=== PATIENT | male | born 1950 | race Caucasian/White ===

== ENCOUNTER 2024-08-22 08:19 | Observation (INO) ==
--- NOTE | 2024-08-11 09:21 | Anesthesiology Consultation ---
Date of Service August 11, 2024 Assessment & Plan (1) Encounter for pre-operative examination: Infectious disease screening: Per assessment on 08/10/24- No known recent infectious disease contacts. Cough onset ~08/03/24 which is improving as of PAT RN phone interview 08/10/24. DOS not until 08/22/24 which is greater than 10 days after onset of symptoms. Patient advised to contact PAT/surgeon if symptoms not at baseline prior to surgery. Nothing further needed at this time. Chart Review Chart Review: Acceptable Risk for Surgery and Patient NOT seen in Pre Admission Testing History Surgery Operation Date: 08/22/24 08:20 Proposed Procedures p TURP (Transurethral Resection of the Prostate) - Hugh Sheehan DO s Transrectal Ultrasound with Prostate Needle Biopsy - Hugh Sheehan DO Height/Weight Height: 6 ft Weight: 88.451 kg Allergies Allergy/AdvReac Type Severity Reaction Status Date / Time No Known Allergies Allergy Verified 08/10/24 11:07 Medications Home Medications Medication Instructions Recorded Confirmed Last Taken cholecalciferol (vitamin D3) 50 50 mcg PO DAILY 06/20/24 08/10/24 Unknown mcg (2,000 unit) capsule multivitamin 1 tab PO DAILY 06/20/24 08/10/24 Unknown psyllium husk 3.4 gram/5.4 gram 1 tbsp PO DAILY 06/20/24 08/10/24 Unknown oral powder (Metamucil) tamsulosin 0.4 mg capsule 0.4 mg PO QDL 06/20/24 08/10/24 Unknown oxybutynin chloride 5 mg tablet 5 mg PO DAILY PRN bladder spasms 07/15/24 08/10/24 Unknown #30 tabs Past Medical History Medical History BPH (benign prostatic hyperplasia) Elevated PSA monitoring Butler catheter in place History of COVID-2019 Past Surgical History Surgical History History of colonoscopy History of tooth extraction Social History Smoking Status: Current some day smoker Smoking cigarettes per day: 1 PPD Do You Dip or Chew Tobacco: No Hx Alcohol Use: No Hx Substance Use: No substance use type: does not use Testing Laboratory Results 08/09/24 WBC 9.82 H/H 15.6/472 PLATELETS 245 SODIUM 137 POTASSIUM 4.2 CHLORIDE 107 CO2 25.3 BUN 13.1 CREATININE 25.3 GLUCOSE 107 Electrocardiogram Date: 08/09/24 SR at 75bpm. iRBBB. Chest X-Ray Date: 08/09/24 Findings: + NAD
[~2024-08-22 08:19] MED LIST: ACETAMINOPHEN 1000 MG/100 ML IV IV ONE
--- NOTE | 2024-08-22 08:35 | History & Physical Bridge Note ---
Date of Service August 22, 2024 History & Physical Bridge Note I have examined the patient, reviewed the History & Physical and in the interval since the performance of the History & Physical I have noted the following changes of clinical significance: no changes noted
[2024-08-22] MEDS: LR 15ML/HR IV SCH (08:54)
[2024-08-22] MEDS ORDERED: MIDAZOLAM HCL 1 MG/ML 2ML VIAL ONE (09:34)
[2024-08-22] MEDS ORDERED: fentaNYL citrate PF 100 MCG/2 ML VIAL ONE ×2 (09:35→10:46)
[2024-08-22] MEDS ORDERED: PROPOFOL IV EMULSION 10 MG/ML 20 ML VIAL IV ONE (09:36)
[2024-08-22] MEDS ORDERED: LIDOCAINE 2% 2 ML VIAL/AMP(20MG/ML) INFIL ONE (09:36)
[2024-08-22] MEDS ORDERED: MoRPHine SULFATE 2 MG/ML CARP IV PRN (10:06)
[2024-08-22] MEDS ORDERED: oxyBUTYnin chloride 5 MG TAB PO PRN ×3 (10:06→10:32)
[2024-08-22] MEDS ORDERED: oxyCODONE/ACETAMINOPHEN 5mg/325mg TAB PO PRN (10:06)
[2024-08-22] MEDS: ceFAZolin 2000MG 2,000 MG/15 ML SYR IV SCH (10:23)
[2024-08-22] MEDS ORDERED: ePHEDrine sulfate 50 MG/ML AMP ONE (10:31)
[2024-08-22] MEDS ORDERED: KETOROLAC 30 MG/ML VIAL ONE (10:43)
[2024-08-22] MEDS ORDERED: ONDANSETRON INJ 2 MG/ML 2 ML VIAL ONE (10:43)
[2024-08-22] MEDS ORDERED: DEXAMETHASONE SOD INJ 4 MG/ML VIAL ONE (10:43)
[2024-08-22] MEDS ORDERED: PHENYLEPHRINE HCL 10 MG/ML VIAL ONE (11:25)
--- NOTE | 2024-08-22 12:27 | Operative Report ---
PG Post Operative Report Pre & Post Diagnosis Operation Date: 08/22/24 10:00 Pre-Op Diagnosis: Benign Prostatic Hyperplasia with Lower Urinary Tract Symptoms Post-Op Diagnosis: Benign Prostatic Hyperplasia with Lower Urinary Tract Symptoms I identified the patient and participated in the time-out.: Yes Procedure Operation Date: 08/22/24 10:00 Actual Procedures p TURP (Transurethral Resection of the Prostate) - Hugh Sheehan DO Surgeon Hugh Sheehan, II, DO Rn Chronic None Estimated Blood Loss 10 Findings Consistent with Post-Op Diagnosis Extremely Large Prostate with obstruction. Extensive resection. Massive enlargement of the lateral and median lobe. Specimens Prostate adenoma. Drains 24Fr 3way Catheter Anesthesia Type General Complications none Disposition Disposition: Recovery Room Indications Patient with obstruction due to prostate enlargement. Risks and benefits discussed at length. Description of Procedure Patient was consented and brought back to the operating room. Patient was placed under anesthesia in the supine position and moved to the dorsal lithotomy position. Patient was prepped and draped in the regular sterile fashion. A time out was completed. A 30degree Cystoscope was placed into the bladder and the entire bladder was examined. The UO's were identified as well as the bladder neck, trigone, dome, and the other important landmarks. The prostatic urethra and large lobes/adenoma was assessed and the veru and bladder neck identified and area/size was assessed. The resection scope was placed and the fine bipolar loop was selected. Starting at the 5 and 7 o'clock positions, a channel was created from bladder neck to the veru. Extensive resection was completed to create a channel. Once resected the right and left lateral lobes were resected. Severe overgrowth was appreciated. The prostate was resected and irrigated multiple times to clear the large bulky obstruction. The Specimen was removed and sent for analysis. The resection bed and any bleeding areas were fulgurated/cauterized and the entire area inspected. All bleeding was controlled. The bladder was inspected a final time. The bladder was emptied and irrigated. All specimen and debris was removed. The scope was removed with the bladder partially full. A catheter was placed and balloon elevated. This was easily irrigated. The patient was cleaned, aroused from anesthesia, and transferred to the pacu in stable condition having tolerated the procedure well with no complications. I was present and participated in all aspects of the procedure. The patient will be monitored in the PACU until transferred. Plan to maintain catheter for approx 7-10 days. Followup for pathology at that time. I attest to the content of the Intraoperative Record and any orders documented therein. Any exceptions are noted below.
[2024-08-22] MEDS: FAMOTIDINE/PF 20 MG/2 ML VIAL IV ONE (13:17)
--- NOTE | 2024-08-22 14:09 | Anesthesiology Progress Note ---
Date of Service August 22, 2024 Anesthesia Post Procedure Vital Signs Vital Signs: Temp Pulse Pulse Resp BP Pulse Ox O2 Del Method 08/22/24 14:05 36.4 C L 122 H 15 93/56 L 100 Room Air 08/22/24 13:34 36.8 C 104 H 16 102/72 100 Room Air 08/22/24 13:05 36.4 C L 95 H 19 123/66 99 Room Air 08/22/24 12:55 88 18 114/59 L 100 Room Air 08/22/24 12:45 97 H 17 105/75 99 Room Air 08/22/24 12:35 100 H 18 109/72 98 Oxymask 08/22/24 12:28 36.1 C L 98 H 16 108/80 98 Oxymask 08/22/24 08:38 36.5 C 83 20 154/89 H 98 Room Air O2 Flow Rate 08/22/24 14:05 08/22/24 13:34 08/22/24 13:05 08/22/24 12:55 08/22/24 12:45 08/22/24 12:35 2 08/22/24 12:28 4 08/22/24 08:38 Transfer of Care Handoff Completed per policy Notes Mental Status: alert / awake / arousable Patient Amnestic to Procedure: Yes Nausea / Vomiting: adequately controlled Pain: adequately controlled Airway Patency, RR, SpO2: stable & adequate BP & HR: stable & adequate Hydration State: stable & adequate Anesthetic Complications: no major complications apparent
[2024-08-22] MEDS: TAMSULOSIN HCL 0.4 MG CAP PO SCH (14:36)
[2024-08-22] MEDS: SODIUM CHLORIDE 0.9% 1,000 ML IV SCH (14:36)
[2024-08-22 14:58] LABS: Hematocrit (blood only) 37.1 % (42.0-52.0); Hemoglobin 12.1 g/dl (14.0-18.0); Mean Corpuscular Hemoglobin 29.7 pg (25.0-34.0); Mean Corpuscular Hgb Conc 32.6 g/dL (32.0-36.0); Mean Corpuscular Volume 90.9 fL (80.0-100.0); Mean Platelet Volume 9.3 fL (9.4-12.4); Platelet Count 335 K/uL (130-400); RDW Coefficient of Variation 13.7 % (11.5-14.5); RDW Standard Deviation 45.3 fL (36.4-46.3); Red Blood Count 4.08 M/uL (4.70-6.10); White Blood Count 12.77 K/ul (4.8-10.8)
[2024-08-22 15:12] LABS: Albumin Globulin Ratio 1.2 (0.9-2); Albumin Level 3.3 gm/dl (3.4-5.0); BUN Creatinine Ratio 14.6 (10-20); Bilirubin,Total 0.7 mg/dl (0.2-1.0); Calcium 8.6 mg/dl (8.6-10.3); Creatinine Clr Calc Pharmacy 54.7 ml/min; Globulin 2.7 gm/dl (2.5-4.0); Potassium 5.1 mmol/L (3.5-5.1)
[2024-08-22] MEDS: SODIUM CHLORIDE 0.9% 500 ML IV ONE (15:25)
--- NOTE | 2024-08-22 15:44 | Hospitalist Consultation ---
Date of Consultation August 22, 2024 Assessment & Plan (1) Hypotension due to blood loss: Fernandez is a 74-year-old male with a past medical history of BPH with LUTS who underwent scheduled TURP 08/22/2024. We have been consulted for postoperative assistance with medical management and postoperative hypotension. Patient has been transferred to PCU for monitoring with resuscitation with crystalloid and blood products as indicated for symptoms due to acute hypotension likely due to blood loss anemia. BPH with LUTS Prophylactic dual agent cefazolin/ciprofloxacin continued - s/p TURP 08/22/24. Hypotension, [place] [address], regular rhythm. Normotensive Postop 95/62, tachycardic 130s On bedside reassessment is slightly lightheaded and dizzy and remains with pressures 90s/60s BP fluctuating [id number] - Sanguinous output into Butler catheter Stat EKG sinus tachycardia. Suspect appropriately reactive due to blood loss. Discussed with urology. Patient did have a very large prostate and some venous areas at risk of bleeding. Likely should tamponade/slow with time and supportive care but agree with transfusion as needed as already ordered Patient is alert oriented does not appear sedate or still under the effects of anesthesia. Additionally has not had any fevers chills or rigors so do not suspect his acute hypotension is from transient postprocedural bacteremia. Cefazolin/Cipro is continued for perioperative prophylaxis. 500 cc NSS bolus completed just prior to assessment, followup 1 L LR bolus ordered 2 large bore peripheral IVs placed 1 unit ordered for transfusion for symptomatic anemia with hemoglobin decreased 15->12 and symptoms. Keep 2 units on reserve at all times for acute bleeding. Transfuse as needed for hypotension/symptoms and acute hemorrhage - MAP has not been lower than 70 at time of assessment and reassessment - Blood consigned signed and on file If 3+ units are ordered then transition to 2: 1: 1 blood product, platelet, FFP with an additional gram of calcium intermittently to prevent transfusion coagulopathy No history of CHF/heart failure. Urinary Retention/Obstruction - Pt with minimal pain but endorses some fullness/pressure suprapubic palpatoin - Butler irrigated and manually flushed. Subsequently with clearance of clot, improved shaking/discomfort - Suspect some contribution from retention 2/2 clot and vagal response. Following improvement HR improved to 110s, bp remains low. 1u pRBC released and pending History of complete right bundle branch block Incomplete right bundle branch block on preoperative EKG. No ischemic changes Baseline QT 389 -Repeat EKG sinus tachycardia DVT prophylaxis: Pharmacal prophylaxis temporarily held due to acute bleeding Diet: Regular Disposition: Moved to PCU CODE STATUS: Full code (2) Benign prostatic hyperplasia with lower urinary tract symptoms: History of Present Illness Attending Physician: Hugh Sheehan, II, DO History of Present Illness Fernandez is a 74-year-old male with a past medical history of BPH with LUTS who underwent scheduled TURP 08/22/2024. We have been consulted for postoperative assistance with medical management and postoperative hypotension. Patient has been transferred to PCU for monitoring with resuscitation with crystalloid and blood products as indicated for symptoms due to acute hypotension likely due to blood loss anemia. Fernandez is seen at the bedside. Feels well and initially is not lightheaded dizzy or having any chest pain but on discussion does note that he gets a little bit lightheaded. He reports other than his enlarged prostate he does not have any other medical problems. Was told he had a slight left-sided inguinal hernia which is not bothersome to him otherwise no medical problems. He denies any history of lung disease, heart disease, kidney disease, diabetes. No history of CHF. No history of strokes. He does not take any prescription medication and has no medication allergies. He is happy to report that he is otherwise extremely healthy and generally does well. He has not had any history of A-fib or arrhythmias. He is not on any blood thinners or antiplatelet agents. He did have a UTI prior to his prostate being removed which she completed a course of antibiotics a few days before his procedure, did not have any antibiotics yesterday but knows he received some antibiotics perioperatively. At time of visit he reports he is starting to get very slightly lightheaded. He denies any palpitations chest pain chest pressure or any does not feel like he is get a pass out but has a little bit of lightheaded/dizziness. He has been having sanguinous output from his Butler. He has not received a unit of blood before. Blood consent was signed and filed at time of visit. Medical History: Reviewed Medications: Reviewed Surgical History: Reviewed Family history: Reviewed Allergies: Reviewed Social History: Tobacco ~0.5-1ppd. Declines patch. No etoh. Code Status: Portia surrogate DM. Full Code Allergies Allergy/AdvReac Type Severity Reaction Status Date / Time No Known Allergies Allergy Verified 08/22/24 08:36 Home Medications Medication Instructions Recorded Confirmed Type cholecalciferol (vitamin D3) 50 50 mcg PO DAILY 06/20/24 08/22/24 History mcg (2,000 unit) capsule multivitamin 1 tab PO DAILY 06/20/24 08/22/24 History psyllium husk 3.4 gram/5.4 gram 1 tbsp PO DAILY 06/20/24 08/22/24 History oral powder (Metamucil) tamsulosin 0.4 mg capsule 0.4 mg PO QDL 06/20/24 08/22/24 History oxybutynin chloride 5 mg tablet 5 mg PO DAILY PRN bladder spasms 07/15/24 08/22/24 Rx #30 tabs Patient History Medical History BPH (benign prostatic hyperplasia) Elevated PSA monitoring Butler catheter in place History of COVID-19 2020 Surgical History History of colonoscopy History of tooth extraction Social History Smoking Status: Current some day smoker Tobacco Type: Cigarettes Cigarettes Per Day: 1 PPD; Second Hand Exposure: No; Do You Dip or Chew Tobacco: No; Tobacco Cessation Education Requested by Patient: No Hx Alcohol Use: No Hx Substance Use: No Preferred Language: German Communication Ability: Effective Supervisor Refining Required: No Beliefs That Will Affect Care: None Current Living Situation: Spouse Other Information That Helps Us Care for You: No Feels Safe at Home: Yes Safety Concerns: Feels Safe At This Time Assistive Devices: None and Denture - Upper Assistive Devices Comment: partial to top Physical Exam Physical Exam: General: A&Ox3. NAD. Cooperative. HEENT: Atraumatic, normocephalic. Vision and hearing intact. Slight pallor Pulm: CTAB A&P. -wheezes, -rales, -rhonchi. Symmetrical chest rise. No increased work of breathing. No respiratory distress. Cardiac: Regular, tachycardic rate [id number]. Starting to downtrend on reassessment with 1 L IV fluid bolus around [id number]. Radial pulses intact and symmetrical. Abdominal: Nontender, nondistended, soft. BS present. : Sanguinous output into Butler catheter Extremities: Moves all extremities equally. Warm and dry. Cap refill is less than 2 seconds in the thumb bilaterally. Results & Data Results & Data Vital Signs (Past 12 Hours) Vital Signs Temp Pulse Pulse Resp BP Pulse Ox O2 Del Method 08/22/24 15:37 36.6 C 136 H 18 95/62 L 100 Room Air 08/22/24 14:29 36.7 C 126 H 18 80/52 L 100 Room Air 08/22/24 14:05 36.4 C L 122 H 15 93/56 L 100 Room Air 08/22/24 13:34 36.8 C 104 H 16 102/72 100 Room Air 08/22/24 13:05 36.4 C L 95 H 19 123/66 99 Room Air 08/22/24 12:55 88 18 114/59 L 100 Room Air 08/22/24 12:45 97 H 17 105/75 99 Room Air 08/22/24 12:35 100 H 18 109/72 98 Oxymask 08/22/24 12:28 36.1 C L 98 H 16 108/80 98 Oxymask 08/22/24 08:38 36.5 C 83 20 154/89 H 98 Room Air O2 Flow Rate 08/22/24 15:37 08/22/24 14:29 08/22/24 14:05 08/22/24 13:34 08/22/24 13:05 08/22/24 12:55 08/22/24 12:45 08/22/24 12:35 2 08/22/24 12:28 4 08/22/24 08:38 PG Care Time/CCT Total # of Minutes Spent Total Time Spent with Patient: Total time spent is greater than 50% in coordination of care (as documented) at patient's floor/unit and/or counseling patient: Coding Level of Care Code 26960 IN/OBS CONSULT LVL 5,80M Diagnoses Hypotension due to blood loss I95.89; R58 Benign prostatic hyperplasia with lower urinary tract symptoms N40.1
[2024-08-22] MEDS ORDERED: SODIUM CHLORIDE 0.9% 50 ML IV PRN ×3 (16:16→18:30)
[2024-08-22] MEDS ORDERED: SODIUM CHLORIDE 0.9% 100 ML IV PRN ×3 (16:16→18:30)
[2024-08-22 16:36] LABS: Hematocrit (blood only) 32.6 % (42.0-52.0); Hemoglobin 10.5 g/dl (14.0-18.0)
[2024-08-22] MEDS ORDERED: ceFAZolin 2000MG 2,000 MG/15 ML SYR IV SCH (18:30)
[2024-08-22] MEDS: LACTATED RINGER'S 1,000 ML IV ONE ×2 (19:10→22:33)
[2024-08-22] MEDS: LACTATED RINGER'S 500 ML IV ONE ×2 (19:11→19:18)
[2024-08-22] MEDS: LACTATED RINGER'S 1,000 ML IV SCH (19:18)
[2024-08-22] MEDS ORDERED: OPTIRAY 320 125ml IV ONE (19:33)
[2024-08-22] MEDS: OPTIRAY 320 125ml IV ONE (19:39)
[2024-08-22] MEDS: 4.5GM X1 IV STA (20:29)
[2024-08-22] MEDS: CALCIUM GLUCONATE 1,000 MG/60 ML BAG IV ONE (20:31)
[2024-08-22] MEDS: DOCUSATE SODIUM 100 MG CAP PO SCH (20:32)
--- NOTE | 2024-08-22 20:34 | Urology Progress Note ---
Date of Service August 22, 2024 Assessment & Plan (1) Elevated PSA: (2) Benign prostatic hyperplasia with lower urinary tract symptoms: (3) UTI (urinary tract infection): (4) Hypotension due to blood loss: (5) Hematuria, gross: Plan POD 0 s/p TURP. Patient evaluated. Had been dealing with hypotension and tachycardia through the day. Did have decreasing hemoglobin on repeat blood analysis. Concern for possible active bleed. Did develop significant clot material with catheter unsure if catheter became displaced or if irrigation had been stopped around dry for period of time but patient developed significant hematuria. Patient had been irrigated when he moved to the PCU. Had undergone stat CT scan to rule out major issues with catheter obstruction possible other causes of bleeding and other issues. Read not yet available however was reviewed interpreted by myself. Did appear to have a moderate amount of clot with a mild to moderate amount of distention of the bladder. No severe distention no major sign of major issue. Patient was assessed bedside. Patient had already had considerable clearing of the catheter. Had some clot irrigated bedside by the nursing team. Urine had been a light red color on assessment. After the CT examination while patient was receiving pRBCs the catheter was attempted to be irrigated by myself. Did irrigate but was somewhat unreliable with irrigation and had some leakage around the catheter. The balloon was deflated and a new catheter placed. After the catheter was removed. Patient had been prepped and draped in the usual sterile fashion and the old catheter was removed. Betadine was used to prep the glans. A local lidocaine jelly was injected into the urethra. A 24 Vietnamese three-way coud hematuria catheter was then placed. This was irrigated and a mild to moderate amount of small clots were able to be irrigated clear. The urine appeared to clear up even further and was a light pink color. The continuous bladder irrigation was reattached and set to drainage. The catheter was placed on mild traction. 50 cc have been placed into the balloon due to the large defect from the TURP procedure. The catheter appeared to be draining well without major issue. The continuous bladder irrigation was set on full open with plans to continue as long as patient remained clear. May need further hand irrigating. During irrigation patient's blood pressures have been checked multiple times his tachycardia did remain but it did appear to be more mild in the 110-120. Blood pressures improved to normal range. Patient had mild irritation with irrigation. Was tolerating the continuous bladder irrigation without issue. Patient was assessed and monitored and evaluated by myself. The catheter exchange was completed by myself and irrigation completed by myself with continuous bladder irrigation appearing to be draining well. Will plan to monitor overnight. Will continue to monitor with blood work with reevaluation in the morning. Appreciate assistance from the hospitalist team and medical management and monitoring moving forward. Will plan to reevaluate in the morning as long as patient remains stable without major changes or issues. Admission and Anticipated Discharge Date Admission Date: August 22, 2024 Subjective Postop from TURP for obstruction issues. Gross Hematuria and Hypotension. Had drop in hemo and underwent transfusion. STAT CT to rule out catheter issues. other bleed, or other major issues. Issues improved with improved irrigation and drainage. 2 x unit pRBC. Imaging reviewed by myself. No read yet. Clot within bladder and some urine. No hydro. No severe distension. Has noticed some frequency and urgency. Has not had severe pain in the back and flank. Does have burning and irritation. No Fever No new nausea or vomiting. Had tolerated anesthesia without major problems Review of Systems Review of Systems: All systems reviewed & are unremarkable except as noted in HPI & below Physical Exam Physical Exam: General: Alert in no acute distress. HEENT: Normocephalic Atraumatic. Inspection normal. Cranial Nerves 2-12 Grossly intact. Normal inspection of face. Normal inspection of neck. Psychologic: Normal affect. Respiratory: Nonlabored. No use of accessory muscles. No tachypnea or dyspnea. Cardiovascular: No tachycardia Skin: [place] and Dry. No rashes or visible lesions. Extremities/Lymphatics: No edema Abdomen: Soft Non-distended. No rebound or guarding. : 24 Fr 3way with some issues irrigating. New [address] hematuria Coude catheter placed with light pink urine and minimal clot irrigation/evacuation after exchange. Results & Data Vital Signs (Past 12 Hours) Vital Signs Temp Pulse Pulse Pulse Resp BP BP 08/22/24 19:08 36.6 C 120 H 20 91/73 L 08/22/24 18:49 36.6 C 111 H 20 102/60 08/22/24 18:42 124 H 20 77/61 L 08/22/24 18:12 124 H 18 76/59 L 08/22/24 18:07 36.6 C 129 H 20 106/85 08/22/24 17:57 115 H 20 85/65 L 08/22/24 17:55 36.4 C 117 H 20 85/65 L 08/22/24 17:38 36.4 C L 108 H 21 98/65 L 08/22/24 15:37 36.6 C 136 H 18 95/62 L 08/22/24 14:29 36.7 C 126 H 18 80/52 L 08/22/24 14:05 36.4 C L 122 H 15 93/56 L 08/22/24 13:34 36.8 C 104 H 16 102/72 08/22/24 13:05 36.4 C L 95 H 19 123/66 08/22/24 12:55 88 18 114/59 L 08/22/24 12:45 97 H 17 105/75 08/22/24 12:35 100 H 18 109/72 08/22/24 12:28 36.1 C L 98 H 16 108/80 08/22/24 08:38 36.5 C 83 20 154/89 H Pulse Ox O2 Del Method O2 Flow Rate 08/22/24 19:08 100 2 08/22/24 18:49 100 08/22/24 18:42 100 08/22/24 18:12 100 08/22/24 18:07 100 Room Air 08/22/24 17:57 100 08/22/24 17:55 100 08/22/24 17:38 100 08/22/24 15:37 100 Room Air 08/22/24 14:29 100 Room Air 08/22/24 14:05 100 Room Air 08/22/24 13:34 100 Room Air 08/22/24 13:05 99 Room Air 08/22/24 12:55 100 Room Air 08/22/24 12:45 99 Room Air 08/22/24 12:35 98 Oxymask 2 08/22/24 12:28 98 Oxymask 4 08/22/24 08:38 98 Room Air PG Care Time/CCT Total # of Minutes Spent Total Time Spent with Patient: Total time spent is greater than 50% in coordination of care (as documented) at patient's floor/unit and/or counseling patient: Coding Level of Care Code 92321 SUB INP/OBS CARE 3/50MIN Diagnoses Elevated PSA R97.20 Benign prostatic hyperplasia with lower urinary tract symptoms N40.1 UTI (urinary tract infection) N39.0 Hypotension due to blood loss I95.89; R58 Hematuria, gross R31.0
[2024-08-22 20:46] LABS: Hematocrit (blood only) 34.6 % (42.0-52.0); Hemoglobin 11.4 g/dl (14.0-18.0)
--- NOTE | 2024-08-22 21:46 | CT Scan Report ---
EXAM: CT angio abdomen pelvis w con CLINICAL HISTORY: acute blood loss anemia, post TURP TECHNIQUE: Contrast enhanced thin slice CT angiography scan of the abdominal aorta was performed with intravenous contrast. Angiographic images were processed, 3D MIP images were acquired for interpretation. Contiguous axial images were obtained. Reformatted coronal and sagittal images were also reviewed. If IV contrast material had not been administered, the likelihood of detecting abnormalities relevant to the patients condition would have been substantially decreased. CT scan was performed according to ALARA (as low as reasonable achievable). COMPARISON: - FINDINGS: Abdominal aorta shows atherosclerotic calcification. There is also atherosclerotic calcification in bilateral external iliac arteries. Origin of coeliac artery, superior mesenteric artery , bilateral main renal and lumbar arteries are normal with no hemodynamically significant ostial stenosis noted. The urinary bladder is distended with presence of large hyperdense intraluminal lesion, measuring around 6.3 x 4.2 cm. Foci of air is seen within the urinary bladder, secondary to instrumentation. Simple right renal cyst is seen Small sized diverticula are seen in the sigmoid colon Solid abdominal organs including liver, spleen, pancreas and right kidney reveal no significant abnormality. Sigmoid diverticulosis noted, mild adjacent perisigmoid fat stranding. Raising possibility of mild diverticulitis. Rest of the Bowel loops are grossly unremarkable. No evidence of ascites. IMPRESSION: 1.The urinary bladder is distended with presence of large hyperdense intraluminal lesion, likely suggestive of blood clot. Correlate wtih US urinary bladder. 2. Simple left renal cyst 3. Atherosclerotic calcification of abdominal aorta and iliac arteries. No significant stenosis seen 4. Sigmoid diverticulosis noted, mild adjacent perisigmoid fat stranding. Raising possibility of mild diverticulitis. Electronically signed by Jake Barrientos 08-22-2024 9:46 PM
[2024-08-22] MEDS: PIPERACILLIN/TAZOBACTAM 4.5 GM/100 ML BAG IV SCH (23:30)
[2024-08-23 01:34] LABS: Hematocrit (blood only) 28.9 % (42.0-52.0); Hemoglobin 9.8 g/dl (14.0-18.0)
--- NOTE | 2024-08-23 08:10 | Urology Progress Note ---
Date of Service August 23, 2024 Assessment & Plan (1) Urinary retention due to benign prostatic hyperplasia: Plan: - Pt POD#1 s/p TURP with Dr. Sheehan - Patient experienced post operative hypotension and tachycardia, issues with catheter obstruction - Catheter exchanged and irrigated by Dr. Sheehan last night - Appreciate assistance from hospital medicine with medical management - Afebrile, stable vitals overnight - Lab work reviewed - Hgb 9.8 today, received 2 units of PRBCs overnight - 3 way Butler catheter draining appropriately with clear urine with CBI on slow - CBI slowed slightly during exam this am, will reassess later today and continue to wean as appropriate - Maintain Butler catheter - Okay to gently hand irrigate catheter if it becomes obstructed - Continue antibiotics - Continue medical management per hospital medicine service Admission and Anticipated Discharge Date Admission Date: August 22, 2024 Subjective Patient seen and examined at bedside this morning. Issues overnight with catheter obstruction. Dr. Sheehan exchanged three-way Butler catheter and manually irrigated catheter. Butler currently draining clear urine with CBI on slow. Denies suprapubic or flank discomfort. No fever or chills. Denies lightheadedness. Received 2 units of PRBCs. Hemoglobin 9.8 today. Review of Systems Constitutional: as per Subjective / HPI Genitourinary: + as per Subjective / HPI Physical Exam Constitutional: no acute distress Respiratory: normal respiratory effort; no respiratory distress and no labored breathing Gastrointestinal (Abdomen): Inspection/Auscultation: abdomen normal to inspection Musculoskeletal: Head/Neck/Chest: normocephalic Neurologic: moves all extremities and awake Psychiatric: Orientation: alert and oriented x 3 Genitourinary: Butler draining clear urine with CBI on slow. CBI slowed slightly during exam. Results & Data Vital Signs (Past 12 Hours) Vital Signs Temp Pulse Pulse Pulse Resp BP Pulse Ox 08/23/24 07:54 36.8 C 08/23/24 07:22 84 20 124/71 100 08/23/24 02:55 36.8 C 82 17 130/72 99 08/22/24 23:44 36.7 C 81 13 113/66 100 08/22/24 22:09 84 08/22/24 21:17 102 H 16 123/84 100 08/22/24 20:30 O2 Del Method 08/23/24 07:54 08/23/24 07:22 Room Air 08/23/24 02:55 Room Air 08/22/24 23:44 Room Air 08/22/24 22:09 08/22/24 21:17 Room Air 08/22/24 20:30 Room Air PG Care Time/CCT Total # of Minutes Spent Total Time Spent with Patient: Total time spent is greater than 50% in coordination of care (as documented) at patient's floor/unit and/or counseling patient: Coding Level of Care Code None Diagnoses Urinary retention due to benign prostatic hyperplasia N40.1; R33.8
--- NOTE | 2024-08-23 10:02 | Hospitalist Progress Note ---
Date of Service August 23, 2024 Assessment & Plan (1) Hypotension due to blood loss: Plan: Fernandez is a 74-year-old male with a past medical history of BPH with LUTS who underwent scheduled TURP 08/22/2024. We have been consulted for postoperative assistance with medical management and postoperative hypotension. Patient has been transferred to PCU for monitoring with resuscitation with crystalloid and blood products as indicated for symptoms due to acute hypotension likely due to blood loss anemia. BPH with LUTS - s/p TURP 08/22/24. No signs of sepsis, Pro-Sukhwinder normal. White count is elevated may be reactive with recent stress Will transition back to Cipro/Ancef. Given complicated course will plan for 7 days of antibiotics Hypotension, acute hemorrhagic Following evaluation 08/23 patient with progressive clotting, bloody output from urine, hypotension and tachycardia. Following transfer to PCU and catheter irrigation with both nursing staff and Dr. Sheehan did have subsequent improvement. During episode did have some acute worsening tachycardia which improved after initial flush and suspected to have some vagal response superimposed on bleeding Received 2 units of packed red blood cells, 2 units crystalloid resuscitation, and with catheter exchange and irrigation subsequently improved and vital signs stabilized Lactate elevated likely due to acute hemorrhage/shock, was fully downtrending and vital signs remained stable CTA was obtained following with/benefits discussion of contrast use. Benefits felt to outweigh the risks given suspicion for acute hemorrhagic shock, hemodynamic instability. Subsequently showed distended urinary bladder with large hyperdense intraluminal lesion suggestive of clot, no other acute abnormalities were noted. No evidence of perforation/free air/active extravasation Hemoglobin trend baseline 15, 12, 10 then uptrending to 11 and downtrending at 9.8. Suspect 9.8 this morning was not continued bleeding as patient remains hemodynamically stable appears clinically well and without recurrent bloody output in the cath; likely redistribution of fluid shifts following acute bleed Repeat H&H pending No indication for transfusion at time of assessment. Symptoms have resolved and vital signs remained stable. Urinary Retention/Obstruction - Resolved DVT prophylaxis: Pharmacal prophylaxis temporarily held due to acute bleeding Diet: Regular Disposition: Moved to PCU CODE STATUS: Full code (2) Benign prostatic hyperplasia with lower urinary tract symptoms: Admission and Anticipated Discharge Date Admission Date: August 22, 2024 Subjective Seen at the bedside this morning. Feels well, lightheadedness and dizziness have completely resolved. No dyspnea or chest pain. No presyncope. Butler catheter has been draining and has no abdominal pain whatsoever. No fevers chills or sweats Physical Exam Physical Exam: General: A&Ox3. NAD. Cooperative. HEENT: Atraumatic, normocephalic. Vision and hearing intact. Slight pallor Pulm: CTAB A&P. -wheezes, -rales, -rhonchi. Symmetrical chest rise. No increased work of breathing. No respiratory distress. Cardiac: Regular rate and rhythm. Abdominal: Nontender, nondistended, soft. BS present. : Scant Butler catheter output, slightly blood-tinged at time of visit Extremities: Moves all extremities equally. Warm and dry. Results & Data Results & Data Vital Signs (Past 12 Hours) Vital Signs Temp Pulse Pulse Resp BP Pulse Ox O2 Del Method 08/23/24 07:54 36.8 C 08/23/24 07:22 84 20 124/71 100 Room Air 08/23/24 02:55 36.8 C 82 17 130/72 99 Room Air 08/22/24 23:44 36.7 C 81 13 113/66 100 Room Air 08/22/24 22:09 84 PG Care Time/CCT Total # of Minutes Spent Total Time Spent with Patient: Total time spent is greater than 50% in coordination of care (as documented) at patient's floor/unit and/or counseling patient: Coding Level of Care Code 26413 SUB INP/OBS CARE 3/50MIN Diagnoses Hypotension due to blood loss I95.89; R58 Benign prostatic hyperplasia with lower urinary tract symptoms N40.1
--- NOTE | 2024-08-23 10:25 | Billing Data ---
Date of Service August 22, 2024 Coding Level of Care Code 19043 CRITICAL CARE 1ST 30-74M Time Spent (min) 70 Comment for hemorrhagic shock, in addition to all care otherwise documented in original consult
[2024-08-23 11:15] LABS: Basophils # (auto) 0.02 K/uL (0.00-0.20); Basophils % (auto) 0.2 %; Eosinophils # (auto) 0.01 K/uL (0.00-0.50); Eosinophils % (auto) 0.1 %; Hematocrit (blood only) 26.4 % (42.0-52.0); Hemoglobin 8.9 g/dl (14.0-18.0); Immature Granulocytes # (auto) 0.06 K/uL (0.01-0.20); Immature Granulocytes % (auto) 0.5 %; Lymphocytes # (auto) 2.57 K/uL (1.20-3.40); Lymphocytes % (auto) 21.5 %; Mean Corpuscular Hemoglobin 29.7 pg (25.0-34.0); Mean Corpuscular Hgb Conc 33.7 g/dL (32.0-36.0); Mean Platelet Volume 9.7 fL (9.4-12.4); Monocytes # (auto) 1.11 K/uL (0.11-0.59); Monocytes % (auto) 9.3 %; Neutrophils % (auto) 68.4 %; Platelet Count 173 K/uL (130-400); RDW Coefficient of Variation 14.4 % (11.5-14.5); RDW Standard Deviation 46.2 fL (36.4-46.3); White Blood Count 11.97 K/ul (4.8-10.8)
[2024-08-23 11:17] LABS: BUN Creatinine Ratio 17.3 (10-20); Calcium 8.1 mg/dl (8.6-10.3); Creatinine Clr Calc Pharmacy 51.2 ml/min; Potassium 4.7 mmol/L (3.5-5.1)
[2024-08-23] MEDS: CIPROFLOXACIN / D5W 400 MG/200 ML BAG IV SCH ×2 (11:37→16:56)
[2024-08-23 15:09] LABS: Ferritin 259.8 ng/ml (8-388)
[2024-08-23] MEDS: FOLIC ACID 1 MG TAB PO SCH (15:28)
[2024-08-23] MEDS: CYANOCOBALAMIN (B-12) 500 MCG TABLET PO SCH (15:28)
[2024-08-23] MEDS: ceFAZolin 2000MG 2,000 MG/15 ML SYR IV SCH (16:56)
[2024-08-24 06:29] LABS: Basophils # (auto) 0.01 K/uL (0.00-0.20); Basophils % (auto) 0.1 %; Eosinophils # (auto) 0.05 K/uL (0.00-0.50); Eosinophils % (auto) 0.6 %; Hematocrit (blood only) 21.9 % (42.0-52.0); Hemoglobin 7.6 g/dl (14.0-18.0); Immature Granulocytes # (auto) 0.03 K/uL (0.01-0.20); Immature Granulocytes % (auto) 0.3 %; Lymphocytes # (auto) 2.37 K/uL (1.20-3.40); Lymphocytes % (auto) 26.1 %; Mean Corpuscular Hemoglobin 30.5 pg (25.0-34.0); Mean Corpuscular Hgb Conc 34.7 g/dL (32.0-36.0); Mean Platelet Volume 9.7 fL (9.4-12.4); Monocytes # (auto) 0.79 K/uL (0.11-0.59); Monocytes % (auto) 8.7 %; Neutrophils # (auto) 5.84 K/uL (1.40-6.50); Neutrophils % (auto) 64.2 %; Platelet Count 150 K/uL (130-400); RDW Coefficient of Variation 14.3 % (11.5-14.5); RDW Standard Deviation 46.3 fL (36.4-46.3); Red Blood Count 2.49 M/uL (4.70-6.10); White Blood Count 9.09 K/ul (4.8-10.8)
[2024-08-24 07:04] LABS: BUN Creatinine Ratio 15.3 (10-20); Calcium 7.6 mg/dl (8.6-10.3); Creatinine Clr Calc Pharmacy 51.9 ml/min
[2024-08-24 07:07] LABS: Polychromasia 1+
--- NOTE | 2024-08-24 09:10 | Hospitalist Progress Note ---
Date of Service August 24, 2024 Assessment & Plan (1) Hypotension due to blood loss: Plan: Fernandez is a 74-year-old male with a past medical history of BPH with LUTS who underwent scheduled TURP 08/22/2024. We have been consulted for postoperative assistance with medical management and postoperative hypotension. Patient has been transferred to PCU for monitoring with resuscitation with crystalloid and blood products as indicated for symptoms due to acute hypotension likely due to blood loss anemia. BPH with LUTS - s/p TURP 08/22/24. discussed with urology, plan to hold CBI -cipro/ancef Acute hemorrhagic shock - resolved with IV fluid and blood transfusions. CTA 3/4 distended urinary bladder with large hyperdense intraluminal lesion suggestive of clot, no other acute abnormalities were noted. No evidence of perforation/free air/active extravasation Acute blood loss anemia - Hg down to 7.6 this am - unclear whether ongoing blood loss vs fluid shifts - repeat H/H at 11 am Urinary Retention/Obstruction - Resolved DVT prophylaxis: Pharmacal prophylaxis temporarily held due to acute bleeding (2) Benign prostatic hyperplasia with lower urinary tract symptoms: Admission and Anticipated Discharge Date Admission Date: August 22, 2024 Subjective Feels much better, no lightheadedness, going to get up in chair soon Urine pink, clear with some tiny clots, CBI ongoing No dyspnea or chest pain Physical Exam 2 Physical Exam: Last 24h vitals reviewed GEN: no acute distress, sitting in bed, alert, looks well HEENT: pupils equal, sclerae anicteric, moist MM RESP: normal WOB, CTAB CV: reg no mrg ABD: nondistended : CBI, urine with tiny clots, clear pink urine SKIN: warm and dry, no generalized rashes NEURO: AOx person, place, and situation. Face symmetric, speech normal, moves 4 ext spontaneously and equally Results & Data Results & Data Vital Signs (Past 12 Hours) Vital Signs Temp Pulse Pulse Pulse Resp BP BP 08/24/24 07:58 37.0 C 88 19 112/65 08/24/24 04:26 37.2 C 86 18 119/68 08/23/24 23:00 37.0 C 86 20 120/70 08/23/24 21:57 89 Pulse Ox O2 Del Method 08/24/24 07:58 97 Room Air 08/24/24 04:26 96 Room Air 08/23/24 23:00 96 Room Air 08/23/24 21:57 Laboratory Results 08/24/24 05:53 08/24/24 05:53 PG Care Time/CCT Total # of Minutes Spent Total Time Spent with Patient: Total time spent is greater than 50% in coordination of care (as documented) at patient's floor/unit and/or counseling patient: Coding Level of Care Code 96124 SUB INP/OBS CARE 2/35MIN Diagnoses Hypotension due to blood loss I95.89; R58 Benign prostatic hyperplasia with lower urinary tract symptoms N40.1
--- NOTE | 2024-08-24 09:39 | Urology Progress Note ---
Date of Service August 24, 2024 Assessment & Plan (1) Urinary retention due to benign prostatic hyperplasia: Plan: - Pt POD#2 s/p TURP with Dr. Sheehan - Patient experienced post operative hypotension and tachycardia as well as issues with catheter obstruction--now resolved - Afebrile with stable vitals - Lab work reviewed - Hgb 7.6, plan for repeat at 11 am - 3 way Butler catheter draining appropriately with clear pink urine with CBI on slow - CBI clamped during exam for clamp trial - Maintain Butler catheter - Okay to gently hand irrigate catheter if it becomes obstructed - Continue antibiotics - Continue medical management per hospital medicine service, appreciate assistance - Hopefully home later today if he continues to progress, pending repeat labs Admission and Anticipated Discharge Date Admission Date: August 22, 2024 Subjective Patient awake and sitting up in bed. Subjectively feeling well. No acute issues overnight. Butler intact with clear pink urine with CBI on slow. Denies nausea, vomiting, fever or chills. Hemoglobin 7.6 today. Review of Systems Constitutional: as per Subjective / HPI Genitourinary: + as per Subjective / HPI Physical Exam Constitutional: well developed and well nourished; no acute distress Respiratory: normal respiratory effort; no respiratory distress and no labored breathing Gastrointestinal (Abdomen): Inspection/Auscultation: abdomen normal to inspection Musculoskeletal: Head/Neck/Chest: normocephalic Neurologic: moves all extremities and awake Psychiatric: Orientation: alert and oriented x 3 Genitourinary: Butler draining clear pink urine with CBI on slow. CBI clamped during exam. Results & Data Vital Signs (Past 12 Hours) Vital Signs Temp Pulse Pulse Pulse Resp BP BP 08/24/24 07:58 37.0 C 88 19 112/65 08/24/24 04:26 37.2 C 86 18 119/68 08/23/24 23:00 37.0 C 86 20 120/70 08/23/24 21:57 89 Pulse Ox O2 Del Method 08/24/24 07:58 97 Room Air 08/24/24 04:26 96 Room Air 08/23/24 23:00 96 Room Air 08/23/24 21:57 PG Care Time/CCT Total # of Minutes Spent Total Time Spent with Patient: Total time spent is greater than 50% in coordination of care (as documented) at patient's floor/unit and/or counseling patient: Coding Level of Care Code None Diagnoses Urinary retention due to benign prostatic hyperplasia N40.1; R33.8
[2024-08-24 11:47] LABS: Hematocrit (blood only) 24.4 % (42.0-52.0); Hemoglobin 8.2 g/dl (14.0-18.0)
--- NOTE | 2024-08-24 14:57 | Discharge Summary ---
Date of Service August 24, 2024 Admission HPI Per Admitting Provider Patient with BPH and urinary retention here for TURP. Principal Diagnosis Urinary retention due to BPH Discharge Exam Constitutional well developed and well nourished; no acute distress Respiratory normal respiratory effort; no respiratory distress and no labored breathing Gastrointestinal (Abdomen) Inspection/Auscultation: abdomen normal to inspection Musculoskeletal Head/Neck/Chest: normocephalic Neurologic moves all extremities and awake Psychiatric Orientation: alert and oriented x 3 Genitourinary Urine pink to light shepherd with CBI clamped Discharge Data Allergies Allergy/AdvReac Type Severity Reaction Status Date / Time No Known Allergies Allergy Verified 08/22/24 08:36 Consultations 08/22/24 15:18 Consult Hospitalist Routine Procedures Performed Operation Date: 08/22/24 10:00 Actual Procedures p TURP (Transurethral Resection of the Prostate)(Not Applicable) - Hugh Sheehan, DO Ordered Studies 08/22/24 19:04 CTA abdomen pelvis w con [CT angio abdomen pelvis w con] Stat Hospital Course (1) Urinary retention due to benign prostatic hyperplasia: - Pt POD#2 s/p TURP with Dr. Sheehan - Patient experienced post operative hypotension and tachycardia as well as issues with catheter obstruction--now resolved - Afebrile with stable vitals - Lab work reviewed - Hgb 7.6, plan for repeat at 11 am - 3 way Butler catheter draining appropriately with clear pink urine with CBI on slow - CBI clamped during exam for clamp trial - Maintain Butler catheter - Okay to gently hand irrigate catheter if it becomes obstructed - Continue antibiotics - Continue medical management per hospital medicine service, appreciate assistance - Hopefully home later today if he continues to progress, pending repeat labs - Upon reassessment, patient's urine was appropriate, CBI discontinued - Repeat Hgb was 8.2, reviewed with attending hospitalist and okay for discharge from medical standpoint - Discharge orders placed, follow-up appointments in place - Expected clinical course reviewed, all questions answered Total Time Total Time Spent Total Time Spent (In Minutes): 15 Discharge Plan Discharge Items Patient Disposition: Home - Self-Care Reason For Visit: Elevated PSA, BPH with Lower Urinary Tract Symptom Discharge Diagnosis: same Activity: Per Instructions section Lifting: No more than 25 pounds Bathing Comment: Okay to shower after discharge, no tub bath or soaking Sexual Activity: Wait until after follow-up appointment Exercise/Sports: Wait until after follow-up appointment Non-emergency contact: Surgeon and Urologist Call non-emergency contact if: your pain is not controlled, you have a fever and your temperature is above 101 Follow-up/Referrals: Hugh Sheehan DO [Physician] - 09/14/24 1:00 pm Tobi Hernandez [Primary Care Provider] - [facility],Nurse [FAKE FOR SCHEDULES] - 08/30/24 9:55 am Diet: Regular Addtl Attending Provider Instructions: Please take all medications as prescribed and keep all follow-ups as scheduled. Please call our office at [phone] with any questions, concerns or need to reschedule appointments for any reason. We are happy to assist you. Tips for your recovery at home: Dont be alarmed by brownish or reddish blood or clots in your urine. This is a result of the procedure. This may occur off and on for weeks to months after the procedure but should continue to improve. Drink plenty of fluids during the day (enough to keep your urine very light colored). This will help keep a healthy flow of urine. Do not lift >25 lbs until your followup Avoid constipation. Please use a stool softener (Colace) for the first two weeks after your procedure Be sure to finish the antibiotics as prescribed. If you go home with a catheter, please wash tubing where it enters your body twice daily with mild soap (Dove or Dial). Once your catheter is removed, expect some blood in your urine and some burning when you urinate. You should have an appointment to have this removed, if you do not please call our office to arrange. Pending Studies at Discharge: Yes Stand-Alone Forms: My [facility], Smoking Cessation Medications and DC Order Prescriptions: New ciprofloxacin HCl 500 mg tablet 500 mg PO BID Qty: 20 0RF Continued oxybutynin chloride 5 mg tablet 5 mg PO DAILY PRN (Reason: bladder spasms) Qty: 30 0RF Metamucil 3.4 gram/5.4 gram powder 1 tbsp PO DAILY Rx Instructions: mix into at least 8 oz of water or juice before administering multivitamin Tablet 1 tab PO DAILY tamsulosin 0.4 mg capsule 0.4 mg PO QDL cholecalciferol (vitamin D3) 50 mcg (2,000 unit) capsule 50 mcg PO DAILY Discharge Orders: Discharge Order (Routine); Ordered 08/24/24 Ordered By: Susan Mejía Admission Data Admit Date/Time: 08/22/24 10:06 Attending Provider: Hugh Sheehan Admit Provider: Hugh Sheehan Primary Care Provider: Tobi Hernandez Other Providers: Tyra Browning Coding Level of Care Code 11774 IN/OBS DISCH 30 MIN/LESS Diagnoses Urinary retention due to benign prostatic hyperplasia N40.1; R33.8
--- NOTE | 2024-08-24 16:19 | Electrocardiogram Report ---
Test Reason : Blood Pressure : */* mmHG Vent. Rate : 148 BPM Atrial Rate : 148 BPM P-R Int : 118 ms QRS Dur : 70 ms QT Int : 282 ms P-R-T Axes : 102 119 125 degrees QTcB Int : 442 ms Sispect Arm lead reversal Sinus tachycardia Normal ECG assuming lead reversal No previous ECGs available Confirmed by Rowdy Avilez ([id number]) on 08/24/2024 4:19:33 PM Referred By: Hugh Sheehan Confirmed By: Rowdy Avilez
== END 2024-08-24 14:58 | disposition home or self-care (01) ==
LOC: 3N 08:19 → ASU 08:19 → 2E 17:09